=== PATIENT | male | born 1955 | race Caucasian/White ===

== ENCOUNTER 2019-02-25 06:39 | Day surgery (SDC) | payer BC ==
[2019-02-25] MEDS ORDERED: Propofol 200 MG/20 ML SDV IV ONE (06:40)
[2019-02-25] MEDS ORDERED: Midazolam 1 MG/ML 2 ML SDV IV ONE (06:40)
[2019-02-25] MEDS ORDERED: Sodium Chloride 0.9% 10 ML Syringe FLUSH PRN (06:45)
[2019-02-25] MEDS ORDERED: Lactated Ringers 1,000 ML IV SCH (06:45)
[2019-02-25] MEDS ORDERED: Simethicone Drops 40 MG/0.6 ML 30 ML Bottle ONE (07:51)
--- NOTE | 2019-02-25 08:08 | PCM.OPNOTE ---
- General Post-Op/Procedure Note Date of Surgery/Procedure: 02/25/19 Operative Procedure(s): c scope wth bx Findings: rectal polyps x3 Pre Op Diagnosis: screening Post-Op Diagnosis: rectal polyps x3 Anesthesia Technique: MAC Primary Surgeon: Dillon Morgan Anesthesia Provider: Carolina Conte ([facility]) Pathology: rectal polyps x3 Complications: None Condition: Good Free Text/Narrative:: see dictation
--- NOTE | 2019-02-25 08:17 | OR ---
DATE OF OPERATION: 02/25/2019 SURGEON: Dillon Morgan MD PROCEDURE PERFORMED: Colonoscopy with cold forceps biopsy. PREOPERATIVE DIAGNOSIS: Need for screening C-scope. POSTOPERATIVE DIAGNOSIS: Rectal polyps x3. INDICATIONS FOR PROCEDURE: This is a 63-year-old white male, who presents for screening colonoscopy. He was offered and accepted same. DESCRIPTION OF OPERATION: After an excellent IV sedation was administered, digital rectal exam was performed. No marked abnormality was noted. Flexible colonoscope was inserted, advanced to cecum. Prep was excellent. The following findings were noted. Ascending colon, unremarkable. Transverse colon, unremarkable. Descending colon, unremarkable. Sigmoid, unremarkable. Rectum: At the proximal rectum, three small hyperplastic appearing lesions, total volume approximately 8 mm. They were all biopsied and submitted in one container. Remainder of the rectal exam was unremarkable. Results by letter. /[id number] /EDIL
== END 2019-02-25 09:01 | disposition home or self-care (01) ==
LOC: FB.SDS 06:39
PROVIDERS: ATTEND Surgery
DX: Z12.11 Encounter for screening for malignant neoplasm of colon (principal); K62.1 Rectal polyp; F17.210 Nicotine dependence, cigarettes, uncomplicated; F32.9 Major depressive disorder, single episode, unspecified; F90.9 Attention-deficit hyperactivity disorder, unspecified type; N40.0 Benign prostatic hyperplasia without lower urinary tract symptoms; Z79.899 Other long term (current) drug therapy
CPT/HCPCS: 88305; A9270-GY; J2250; J2704; J7120